=== PATIENT | female | born 1940 | race Caucasian/White ===

== ENCOUNTER 2017-06-08 08:34 | Outpatient (CLI) | payer MEDICARE, BC ==
[~2017-06-08] VITALS: Ht 162.6 cm; Wt 86.8 kg
[2017-06-08] MEDS ORDERED: SYNTHROID50 MCG PO (09:09)
[2017-06-08 09:19] VITALS: BP 183/85; Ht 162.6 cm; Wt 86.8 kg
[2017-06-08 10:06] LABS: BASOPHILS 0.4 % (0-2); EOSINOPHILS 0.5 % (0-7); HEMATOCRIT 40.6 % (36.0-48.0); IMMATURE GRANULOCYTES 0.2 % (0-5); LYMPHOCYTES 43.5 % (15-50); MCHC 34.5 g/dL (31.0-37.0); MCV 92.9 fL (80.0-100.0); MEAN PLATELET VOLUME 11.6 fL (7.4-10.4); MONOCYTES 8.5 % (2-11); NEUTROPHILS 46.9 % (40-80); PLATELET COUNT 299 10x3/uL (130-400); RBC 4.37 10x6/uL (4.00-5.40); RDW 13.8 % (11.5-14.5); WBC 9.4 10x3/uL (4.8-10.8)
[2017-06-08 10:08] LABS: ANION GAP 14.5 mmol/L (8-16); CALCIUM 8.9 mg/dL (8.5-10.1); CARBON DIOXIDE 25.2 mmol/L (21.0-32.0); CREATININE - SERUM 0.9 mg/dL (0.6-1.3); POTASSIUM - SERUM 3.7 mmol/L (3.5-5.1)
[2017-06-08 10:12] LABS: APTT 29.4 SECONDS (22.8-39.4); INR 0.96 (0.85-1.17); PROTIME 12.4 SECONDS (11.6-15.0)
== END 2017-06-08 16:10 | disposition home or self-care (01) ==
LOC: D.SP 08:34
PROVIDERS: Radiology Diagnostic Radiology
DX: R91.8 Other nonspecific abnormal finding of lung field (principal); J20.9 Acute bronchitis, unspecified; R05 Cough; Z01.812 Encounter for preprocedural laboratory examination; C34.11 Malignant neoplasm of upper lobe, right bronchus or lung

== ENCOUNTER → 2018-04-04 09:37 | Outpatient (CLI) | payer MEDICARE, BC ==
[2017-06-08 09:19] VITALS: BMI 32.8
[~2018-04-04 09:37] MED LIST: SYNTHROID50 MCG PO
== END | disposition home or self-care (01) ==
LOC: D.CT 09:37
DX: G45.0 Vertebro-basilar artery syndrome (principal)

== ENCOUNTER → 2018-12-13 08:20 | Outpatient (CLI) | payer MEDICARE, BC ==
[2017-06-08 09:19] VITALS: BMI 32.8
== END | disposition home or self-care (01) ==
LOC: D.CT 08:20
PROVIDERS: ATTEND Nurse Practitioner Family
DX: I73.9 Peripheral vascular disease, unspecified (principal)